=== PATIENT | female | born 1985 | race African-American/Black ===

== ENCOUNTER 2017-01-05 12:41 | Emergency (ER) | payer MEDICAID ==
[~2017-01-05] VITALS: Ht 167.6 cm; Wt 89.0 kg
[~2017-01-05 12:41] MED LIST: CALC500T42 PO; MEDR150P IM
[2017-01-05 12:45] VITALS: BP 135/84; PULSE 63; RESP 16; TEMP 98; O2SAT 100
--- NOTE | 2017-01-05 12:56 | PD ---
HPI . cold x 3 days Chief Complaint: Cold / Flu Symptoms Time Seen by Provider: 13:00 Travel History International Travel<30 days: No Contact w/Intl Traveler<30days: No Traveled to known affect area: No History of Present Illness HPI 31-year-old female with no past medical history here with cold, congestion, sneezing and rhinorrhea for 3 days. Patient that she had a fever and tells me that her temperature was about 99. Her symptoms are not improving therefore she decided to come to the emergency room for further evaluation. She has no other complaints. PFSH Past Medical History Hx Anticoagulant Therapy: No Diabetes: No Diminished Hearing: No Genitourinary: Yes (UTERINE FIBROIDS) Headaches: Yes Reproductive: Yes (UTERINE FIBROIDS) ?: Not : 6 Para: 4 Miscarriage: 0 : 2 Past Surgical History Abdominal Surgery: Yes (C SECTION) Section: Yes (X4) Gynecologic Surgery: Yes () Social History Alcohol Use: Yes (SOCIALLY) Tobacco Use: No Substance Use: No Allergies-Medications (Allergen,Severity, Reaction): Coded Allergies: No Known Allergies (Verified , 01/05/17) Reported Meds & Prescriptions Reported Meds & Active Scripts Active Augmentin (Amoxicillin-Clavulanate) 875-125 mg Tab 875 Mg PO BID not for use in CrCl <30 ml/min. Review of Systems General / Constitutional: Positive: Fever Eyes: No: Visual changes HENT: Positive: Rhinorrhea, Congestion, Earache, No: Headaches Cardiovascular: No: Chest Pain or Discomfort Respiratory: Positive: Cough, No: Shortness of Breath Gastrointestinal: No: Abdominal Pain Genitourinary: No: Dysuria Musculoskeletal: No: Pain Skin: No Rash Neurologic: No: Weakness Psychiatric: No: Depression Endocrine: No: Polydipsia Hematologic/Lymphatic: No: Easy Bruising Physical Exam Narrative GENERAL: AAO x 3, no acute distress, Well-nourished, well-developed patient. SKIN: Warm and dry. No visible rashes or bruising. HEAD: Normocephalic and atraumatic. EYES: No scleral icterus. No injection or drainage. ENT: No nasal drainage noted. Mucous membranes pink. Airway patent. Moderate postnasal drip. Posterior pharynx with mild erythema. Both TMs cloudy with fluid. Slight erythema. NECK: Supple, trachea midline. No JVD. Mild lymphadenopathy. CARDIOVASCULAR: Regular rate and rhythm without murmurs, gallops, or rubs. RESPIRATORY: Breath sounds equal bilaterally. No accessory muscle use. No rhonchi or rales. GASTROINTESTINAL: Abdomen soft, non-tender, nondistended. EXTREMITIES: No cyanosis or edema. BACK: Nontender without obvious deformity. No CVA tenderness. PSYCH: AAO x 3, normal affect. Data Data Last Documented VS Vital Signs Date Time Temp Pulse Resp B/P Pulse Ox O2 Delivery O2 Flow Rate FiO2 01/05/17 12:45 98.0 63 16 135/84 100 MDM Medical Decision Making Medical Screen Exam Complete: Yes Emergency Medical Condition: Yes Medical Record Reviewed: Yes Differential Diagnosis acute sinusitis, bronchitis, less likely influenza, less likely PNA Narrative Course 31-year-old female with no past medical history here with cold, congestion, sneezing and rhinorrhea for 3 days. Patient that she had a fever and tells me that her temperature was about 99. Her symptoms are not improving therefore she decided to come to the emergency room for further evaluation. She has no other complaints. Patient seen and examined. She appears to have acute sinusitis. I'll go ahead and treat with antibiotics. Patient verbalized understanding of instructions, questions were answered, and thanked me for their care. I advised them if their condition worsens, please return to the nearest emergency room for further care. Diagnosis Primary Impression: Acute sinusitis Qualified Code: J01.90 - Acute sinusitis, recurrence not specified, unspecified location Patient Instructions: General Instructions, Sinusitis (ED) Additional Instructions: Please return to emergency department if your symptoms return or worsen. Follow up with your primary care provider. Take medications as prescribed. Med/Other Pt SpecificInfo: Prescription(s) given Scripts Amoxicillin-Clavulanate (Augmentin)875-125 mg Ume340 Mg PO BID #20 TAB not for use in CrCl <30 ml/min. Prov:Steph Marquis MD 01/05/17 Disposition: 01 DISCHARGE HOME Condition: Stable Celeste Muñiz Jan 05, 2017 12:56
[2017-01-05] MEDS ORDERED: AUGM875T PO (13:01)
== END 2017-01-05 13:20 | disposition home or self-care (01) ==
LOC: PHEFT 12:41
DX: J01.90 Acute sinusitis, unspecified (principal)
CPT/HCPCS: 99283